=== PATIENT | female | born 1945 | race Caucasian/White ===

== ENCOUNTER 2020-09-22 14:15 | Emergency (ER) | payer MEDICARE, BC ==
[~2020-09-22] VITALS: Ht 160 cm; Wt 63.6 kg
[~2020-09-22 14:15] MED LIST: ASPI81TA52 PO; NITR0.4T51 SL; PANT40TA39 PO; ROSU10TA2 PO
[2020-09-22] MEDS ORDERED: normal saline 1000ML IV soln IVB ONE (14:30)
[2020-09-22 14:56] LABS: BASOPHILS # (AUTO) 0.1 X10'3 (0-0.2); EOSINOPHILS # (AUTO) 0.8 X10'3 (0-0.9); HEMOGLOBIN 12.6 g/dl (12.0-16.0); LYMPHOCYTES # (AUTO) 2.8 X10'3 (1.1-4.8); MEAN PLATELET VOLUME 9.4 FL (7.4-10.4); MONOCYTES # (AUTO) 0.7 X10'3 (0-0.9); NEUTROPHILS # (AUTO) 4.5 X10'3 (1.8-7.7)
[2020-09-22 14:58] LABS: BASOPHILS % (AUTO) 1.5 % (0-1); EOSINOPHILS % (AUTO) 8.8 % (0-6); HEMATOCRIT 37.9 % (35.0-45.0); LYMPHOCYTES % (AUTO) 31.3 % (21-51); MEAN CORPUSCULAR HGB CONC 33.2 g/dL (33.0-36.5); MEAN CORPUSCULAR VOLUME 93.3 FL (78-98); MONOCYTES % (AUTO) 7.7 % (2-12); NEUTROPHILS % (AUTO) 50.7 % (42-75); PLATELET COUNT 340 X10'3 (140-440); RED BLOOD COUNT 4.06 X10'6 (4.20-5.60); RED CELL DISTRIBUTION WIDTH 13.8 % (11.5-14.5); WHITE BLOOD COUNT 8.9 X10'3 (4.5-11.0)
[2020-09-22 15:07] LABS: D-DIMER 0.22 MG/L FEU (0-0.50)
[2020-09-22 15:13] LABS: LARGE PLATELETS FEW; PLATELET ESTIMATE NORMAL
[2020-09-22 15:20] LABS: ALANINE AMINOTRANSFERASE 42 U/L (12-78); ALBUMIN 3.3 G/DL (3.4-5.0); ALBUMIN/GLOBULIN RATIO 0.7 (1.1-1.5); ALKALINE PHOSPHATASE 146 IU/L (46-116); ANION GAP 7 (8-16); ASPARTATE AMINO TRANSFERASE 30 U/L (10-37); BILIRUBIN,TOTAL 0.4 MG/DL (0.1-1.0); BLOOD UREA NITROGEN 11 MG/DL (7-18); BUN/CREATININE RATIO 10.2 (6.6-38.0); CALCIUM 9.7 MG/DL (8.5-10.1); CHLORIDE 105 MMOL/L (99-107); CREATININE 1.08 MG/DL (0.40-0.90); GLUCOSE 220 MG/DL (70-104); POTASSIUM 3.9 MMOL/L (3.5-5.1); SODIUM 140 MMOL/L (135-145); TOTAL CARBON DIOXIDE 27.9 MMOL/L (24-32); TOTAL PROTEIN 8.2 G/DL (6.4-8.2); eGFR 49 ML/MIN
[2020-09-22 15:25] LABS: MAGNESIUM 2.1 MG/DL (1.5-2.4)
[2020-09-22 16:31] VITALS: BP 128/76
[2020-09-22] MEDS ORDERED: FLEC100T35 PO (17:10)
== END 2020-09-22 17:35 | disposition home or self-care (01) ==
LOC: ER 14:15
DX: R00.0 Tachycardia, unspecified (principal); N28.9 Disorder of kidney and ureter, unspecified; R42 Dizziness and giddiness; R07.89 Other chest pain; I48.91 Unspecified atrial fibrillation; E78.00 Pure hypercholesterolemia, unspecified; K21.9 Gastro-esophageal reflux disease without esophagitis; E11.9 Type 2 diabetes mellitus without complications; Z90.710 Acquired absence of both cervix and uterus; Z98.890 Other specified postprocedural states; Z88.8 Allergy status to other drugs, medicaments and biological substances; Z79.82 Long term (current) use of aspirin; Z79.899 Other long term (current) drug therapy
CPT/HCPCS: 36415; 71045; 80053; 83735; 83880; 84443; 84484; 85008; 85025; 85379; 93005; 99285; J7030

== ENCOUNTER 2022-12-16 07:54 | Day surgery (SDC) | payer MEDICARE, BC ==
[2022-12-16] VITALS (11 sets, daily range): BP systolic 102–181; BP diastolic 45–68
[~2022-12-16] VITALS: Ht 160 cm; Wt 58.0 kg
[~2022-12-16 07:54] MED LIST changes: +FLEC100T35 PO
[2022-12-16] MEDS ORDERED: diphenhydrAMINE 25mg capsule PO PRN (08:25)
[2022-12-16] MEDS ORDERED: MESSAGE TO PHARMACY PO ONE (08:25)
[2022-12-16] MEDS ORDERED: nitroGLYCERIN 0.4mg SUBLingual tab SL PRN ×2 (08:25→12:20)
[2022-12-16] MEDS ORDERED: normal saline 1,000 ML IV SCH (08:25)
[2022-12-16] MEDS ORDERED: LORazepam 0.5 MG tablet PO PRN (08:25)
[2022-12-16] MEDS ORDERED: dextrose 50%-water 50ml dispensing syringe IV PRN ×2 (08:25)
[2022-12-16] MEDS ORDERED: DEXTROSE 15 GM of carb/4 tabs (each vial/BOTTLE has 4 tablets) PO PRN ×2 (08:25)
[2022-12-16] MEDS ORDERED: glucagon, human recombinant 1mg kit SUBCUT PRN (08:25)
[2022-12-16] MEDS ORDERED: insulin Lispro (HumaLOG) vial - multi-dose SQ SCH (08:25)
[2022-12-16 08:56] LABS: APTT 35 SECONDS (22-32)
[2022-12-16] MEDS ORDERED: REPA1TAB8 PO (09:00)
[2022-12-16] MEDS ORDERED: WARF4TAB69 PO (09:00)
[2022-12-16] MEDS ORDERED: FLEC50TA PO (09:00)
[2022-12-16] MEDS ORDERED: CARV3.123 PO (09:00)
[2022-12-16] MEDS ORDERED: CETI-90 PO (09:03)
[2022-12-16] MEDS ORDERED: CHOL100L PO (09:03)
[2022-12-16] MEDS ORDERED: midazolam 1 mg/ML 2ml injection ONE (10:02)
[2022-12-16] MEDS ORDERED: iohexol 350MG/ML 100ml bottle IV ONE ×2 (10:02→11:05)
[2022-12-16] MEDS ORDERED: fentaNYL/PF 50MCG/1 ML 2ML syringe ONE (10:02)
[2022-12-16] MEDS ORDERED: iohexol 350 MG/ML 50ML vial IV ONE (10:02)
[2022-12-16] MEDS ORDERED: LIDOcaine 1% 30ml preserv. free vial ONE (10:03)
[2022-12-16] MEDS ORDERED: nitroGLYCERIN-Tridil 50MG/D5W 250 ML IV ONE (11:13)
[2022-12-16] MEDS ORDERED: hydrALAZINE 20mg/ml inj. IV ONE (11:19)
[2022-12-16] MEDS ORDERED: normal saline 1000ml 1,000 ML IV SCH (12:20)
[2022-12-16] MEDS ORDERED: OXAZEpam 15mg capsule PO PRN (12:20)
[2022-12-16] MEDS ORDERED: ondansetron/PF 4mg/2ml inj IV PRN (12:20)
[2022-12-16] MEDS ORDERED: HYDROcodone/acetaminophen 5mg/325mg tablet PO PRN (12:20)
[2022-12-16] MEDS ORDERED: proCHLORperazine 10 MG/2 ml inj IV PRN (12:20)
[2022-12-16] MEDS ORDERED: HYDROcodone/acetaminophen 10/325mg tab PO PRN (12:20)
--- NOTE | 2022-12-16 12:45 | NUR ---
pt attempted to void couple times and unable to, f/c placed without any difficulty.
[2022-12-16 14:15] LABS: ISTAT HGB ART 11.9 g/dl (12.0-16.0); ISTAT Hct ART 35 %PCV (35-45); ISTAT O2 SATURATION ARTERIAL 98 % (95-98); ISTAT SOURCE ART
[2022-12-16 15:39] LABS: ISTAT Hct MIX 35 %PCV (35-45); ISTAT O2 SATURATION MIX VENOUS 78 % (60-80); ISTAT SOURCE VEN
[2022-12-16 15:39] LABS: ISTAT Hct MIX 35 %PCV (35-45); ISTAT O2 SATURATION MIX VENOUS 73 % (60-80); ISTAT SOURCE VEN
--- NOTE | 2022-12-16 17:30 | NUR ---
f/c removed without any difficulty and pt was able to void after f/c removed.
[2022-12-16] MEDS ORDERED: insulin glargine (Lantus) pen - multi-dose SQ SCH (21:00)
== END 2022-12-16 17:55 | disposition home or self-care (01) ==
LOC: SSTAY O 07:54
PROVIDERS: ATTEND Internal Medicine Cardiovascular Disease
DX: I25.119 Atherosclerotic heart disease of native coronary artery with unspecified angina pectoris (principal); I08.0 Rheumatic disorders of both mitral and aortic valves; I48.0 Paroxysmal atrial fibrillation; K21.9 Gastro-esophageal reflux disease without esophagitis; E78.5 Hyperlipidemia, unspecified; E11.9 Type 2 diabetes mellitus without complications; I10 Essential (primary) hypertension; G47.9 Sleep disorder, unspecified; I73.9 Peripheral vascular disease, unspecified; J44.9 Chronic obstructive pulmonary disease, unspecified; Z88.8 Allergy status to other drugs, medicaments and biological substances; Z86.73 Personal history of transient ischemic attack (TIA), and cerebral infarction without residual deficits; Z86.16 Personal history of COVID-19; Z90.710 Acquired absence of both cervix and uterus; Z79.899 Other long term (current) drug therapy; Z79.01 Long term (current) use of anticoagulants; Z87.891 Personal history of nicotine dependence; Z90.81 Acquired absence of spleen
CPT/HCPCS: 36415; 82803; 82948; 83036; 83880; 84484; 85014; 85610; 85730; 93005; 93460; 93567; 99152; 99153; C1760; J0360; J1644; J2250; J3010; J3490; J7030; Q0163; Q9967; A6258; C1751; J1815

== ENCOUNTER 2022-12-30 11:02 | Outpatient (CLI) | payer MEDICARE, BC ==
[~2022-12-30] VITALS: Ht 152.4 cm; Wt 57.6 kg
[~2022-12-30 11:02] MED LIST changes: -ASPI81TA52 PO; +CARV3.123 PO; +CETI-90 PO; +CHOL100L PO; -FLEC100T35 PO; +FLEC50TA PO; -PANT40TA39 PO; +REPA1TAB8 PO; -ROSU10TA2 PO; +WARF4TAB69 PO
[2022-12-30 11:35] LABS: BASOPHILS # (AUTO) 0.1 X10'3 (0-0.2); BASOPHILS % (AUTO) 1.4 % (0-1); EOSINOPHILS # (AUTO) 0.6 X10'3 (0-0.9); EOSINOPHILS % (AUTO) 7.3 % (0-6); HEMATOCRIT 37.1 % (35.0-45.0); HEMOGLOBIN 12.1 g/dl (12.0-16.0); LYMPHOCYTES # (AUTO) 1.8 X10'3 (1.1-4.8); MEAN CORPUSCULAR HEMOGLOBIN 30.3 PG (27.0-31.0); MEAN CORPUSCULAR HGB CONC 32.8 g/dL (33.0-36.5); MEAN CORPUSCULAR VOLUME 92.3 FL (78-98); MEAN PLATELET VOLUME 9.4 FL (7.4-10.4); MONOCYTES # (AUTO) 0.6 X10'3 (0-0.9); MONOCYTES % (AUTO) 7.7 % (2-12); NEUTROPHILS # (AUTO) 4.7 X10'3 (1.8-7.7); NEUTROPHILS % (AUTO) 60.6 % (42-75); PLATELET COUNT 335 X10'3 (140-440); RED BLOOD COUNT 4.02 X10'6 (4.20-5.60); RED CELL DISTRIBUTION WIDTH 14.2 % (11.5-14.5); WHITE BLOOD COUNT 7.7 X10'3 (4.5-11.0)
[2022-12-30 11:45] LABS: APTT 41 SECONDS (22-32)
[2022-12-30 11:46] LABS: ALANINE AMINOTRANSFERASE 56 U/L (12-78); ALBUMIN/GLOBULIN RATIO 0.6 (1.1-1.5); ALKALINE PHOSPHATASE 199 IU/L (46-116); ANION GAP 9 (8-16); ASPARTATE AMINO TRANSFERASE 42 U/L (10-37); BILIRUBIN,TOTAL 0.3 MG/DL (0.1-1.0); BLOOD UREA NITROGEN 14 MG/DL (7-18); BUN/CREATININE RATIO 11.2 (10.0-20.0); CALCIUM 9.2 MG/DL (8.5-10.1); CHLORIDE 104 MMOL/L (99-107); CREATININE 1.25 MG/DL (0.40-0.90); GLUCOSE 258 MG/DL (70-104); POTASSIUM 4.4 MMOL/L (3.5-5.1); SODIUM 138 MMOL/L (135-145); TOTAL CARBON DIOXIDE 24.6 MMOL/L (24-32); TOTAL PROTEIN 7.8 G/DL (6.4-8.2); eGFR 41 ML/MIN
[2022-12-30] MEDS ORDERED: IODIXANOL 320 MG/ML INFUS..BTL 100ML IV ONE (12:14)
[2022-12-30 14:11] LABS: ABG HCO3 25.6 mmol/L (22.0-26.0); ABG OXYGEN SATURATION 95.3 % (94-97); ABG PCO2 (T) 40.8 mmHg (32.0-45.0); ABG PO2 (T) 73.7 mmHg (75.0-100.0); ALLEN'S TEST POSITIVE; FCOHb 0.4 % (0.0-3.9); FMetHb 0.3 % (0.0-1.5); FO2Hb 94.6 % (94-97); TOTAL HEMOGLOBIN 13.5 G/dl (12.0-16.0)
[2022-12-30] MEDS ORDERED: albuterol 2.5 MG/3 ML nebule NEB PRN (14:20)
== END 2022-12-30 23:59 | disposition home or self-care (01) ==
LOC: CARD DIAG 11:02
PROVIDERS: ATTEND Internal Medicine Cardiovascular Disease
DX: I08.0 Rheumatic disorders of both mitral and aortic valves (principal); R06.02 Shortness of breath; I65.29 Occlusion and stenosis of unspecified carotid artery; R94.2 Abnormal results of pulmonary function studies; I70.0 Atherosclerosis of aorta; M40.294 Other kyphosis, thoracic region; K80.20 Calculus of gallbladder without cholecystitis without obstruction
CPT/HCPCS: 36415; 36600; 71046; 71275; 74174; 80053; 82803; 85018; 85025; 85610; 85730; 93306; 94060; 94727; 94729; 94760; Q9967

== ENCOUNTER 2024-01-31 02:21 | Inpatient (IN) | payer MEDICARE, BC ==
[2024-01-31] VITALS (20 sets, daily range): BP systolic 117–167; BP diastolic 46–85; PULSE 64–89; RESP 14–22; TEMP 97.1–98.4; O2SAT 91–99
[~2024-01-31] VITALS: Ht 160 cm; Wt 59.1 kg
[~2024-01-31 02:21] MED LIST changes: +ASPI81TA53 PO; +ATOR20TA66 PO; -CARV3.123 PO; +CLOP75TA34 PO; +MULT-1085 PO; -REPA1TAB8 PO; -WARF4TAB69 PO
[2024-01-31 02:50] LABS: BASOPHILS # (AUTO) 0.1 X10'3 (0-0.2); BASOPHILS % (AUTO) 0.6 % (0-1); EOSINOPHILS # (AUTO) 0.2 X10'3 (0-0.9); EOSINOPHILS % (AUTO) 1.5 % (0-6); HEMOGLOBIN 13.1 g/dl (12.0-16.0); LYMPHOCYTES # (AUTO) 3.3 X10'3 (1.1-4.8); LYMPHOCYTES % (AUTO) 23.2 % (21-51); MEAN CORPUSCULAR HEMOGLOBIN 30.2 PG (27.0-31.0); MEAN CORPUSCULAR HGB CONC 32.8 g/dL (33.0-36.5); MEAN CORPUSCULAR VOLUME 92.1 FL (78-98); MEAN PLATELET VOLUME 9.2 FL (7.4-10.4); MONOCYTES # (AUTO) 1.7 X10'3 (0-0.9); MONOCYTES % (AUTO) 11.8 % (2-12); NEUTROPHILS % (AUTO) 62.9 % (42-75); PLATELET COUNT 257 X10'3 (140-440); RED BLOOD COUNT 4.34 X10'6 (4.20-5.60); RED CELL DISTRIBUTION WIDTH 13.7 % (11.5-14.5); WHITE BLOOD COUNT 14.4 X10'3 (4.5-11.0)
[2024-01-31] MEDS ORDERED: CARV3.122 PO (02:54)
[2024-01-31 02:59] LABS: ALBUMIN 2.8 G/DL (3.4-5.0); ANION GAP 6 (8-16); BLOOD UREA NITROGEN 16 MG/DL (7-18); CALCIUM 8.3 MG/DL (8.5-10.1); CHLORIDE 106 MMOL/L (99-107); CREATININE 1.45 MG/DL (0.40-0.90); GLUCOSE 106 MG/DL (70-104); POTASSIUM 3.8 MMOL/L (3.5-5.1); SODIUM 140 MMOL/L (135-145); TOTAL CARBON DIOXIDE 28.4 MMOL/L (24-32); eCRCL 26 ML/MIN; eGFR 35 ML/MIN
[2024-01-31] MEDS ORDERED: potassium Cl 40MEQ/1/2NS 520ml 520 ML IV PRN (03:40)
[2024-01-31] MEDS ORDERED: magnesium 2GM in 50ml NS 50 ML IV PRN (03:40)
[2024-01-31] MEDS ORDERED: magnesium 4gm in 100ml NS 100 ML IV PRN (03:40)
[2024-01-31] MEDS ORDERED: magnesium hydroxide 30ml (MOM) UD suspension PO PRN (03:40)
[2024-01-31] MEDS ORDERED: ondansetron/PF 4mg/2ml inj IV PRN ×2 (03:40→17:25)
[2024-01-31] MEDS ORDERED: morphine 2 MG/ML inj. syringe IV PRN ×2 (03:40→17:25)
[2024-01-31] MEDS ORDERED: mag hydrox/Alum hydrox/simeth 30ml oral suspension PO PRN (03:40)
[2024-01-31] MEDS ORDERED: potassium Cl 20 mEq SR tablet PO PRN ×2 (03:40)
[2024-01-31] MEDS ORDERED: magnesium Cl slow-release 64mg tablet PO PRN (03:40)
[2024-01-31] MEDS ORDERED: acetaminophen 325mg tablet PO PRN (03:40)
[2024-01-31 04:39] LABS: MAGNESIUM 1.9 MG/DL (1.5-2.4)
[2024-01-31] MEDS: tamsulosin 0.4mg capsule PO SCH (05:20)
[2024-01-31] MEDS: normal saline 1000ml 1,000 ML IV SCH (05:20)
[2024-01-31 05:55] LABS: BILIRUBIN,URINE NEGATIVE (Neg); CLARITY,URINE SLIGHTLY CLOUDY (Clear); COLOR,URINE YELLOW (Yellow); GLUCOSE, URINE NEGATIVE (Neg); KETONES,URINE NEGATIVE (Neg); LEUKOCYTE ESTERASE ,URINE NEGATIVE (Neg); NITRITES, URINE NEGATIVE (Neg); OCCULT BLOOD,URINE LARGE (Neg); PROTEIN,URINE NEGATIVE (Neg); UROBILINOGEN,URINE 0.2 E.U/dL (0.2-1.0)
[2024-01-31 06:03] LABS: UA COLLECTION TYPE STRAIGHT CATH
[2024-01-31 06:17] LABS: BACTERIA,URINE FEW /HPF (Neg); MUCUS STRANDS NONE SEEN /LPF (Neg); RBC,URINE 20-50 /HPF (0-2); SQUAMOUS EPITHELIAL CELL,UR NONE SEEN /LPF (FEW); WBC CLUMPS,URINE FEW /HPF (NEGATIVE)
[2024-01-31] MEDS: enoxaparin 30mg/0.3ml syringe SQ SCH (07:39)
[2024-01-31] MEDS: K and/or MAG REPLACEMENT MC SCH (08:00)
[2024-01-31] MEDS: flecainide 50mg tablet PO SCH (08:06)
[2024-01-31] MEDS: carVEDilol 3.125mg tablet PO SCH (08:07)
[2024-01-31] MEDS: docusate sod 100mg capsule PO SCH (08:07)
[2024-01-31] MEDS: CefTRIAXone/D5W-Rocephin 1gm 50 ML IV SCH (08:08)
[2024-01-31] MEDS ORDERED: FURO-150 PO (14:51)
[2024-01-31] MEDS ORDERED: LOSA-415 PO (14:51)
[2024-01-31] MEDS ORDERED: AMI200T PO (14:51)
[2024-01-31] MEDS ORDERED: SPIR25TA5 PO (14:51)
[2024-01-31] MEDS ORDERED: labetalol 20mg/4ml (5mg/ml) syringe IV PRN (17:25)
[2024-01-31] MEDS: ringers solution, lacted 1,000 ML IV SCH (17:25)
[2024-01-31] MEDS ORDERED: morphine 4 MG/ML inj SYRINge IV PRN (17:25)
[2024-01-31] MEDS ORDERED: fentaNYL/PF 50MCG/1 ML 2ML syringe IV PRN ×2 (17:25)
[2024-01-31] MEDS ORDERED: hydrALAZINE 20mg/ml inj. IV PRN (17:25)
[2024-01-31] MEDS ORDERED: oxybutynin 5mg tablet PO PRN (17:30)
[2024-01-31] MEDS ORDERED: phenazopyridine 100mg tablet PO PRN (17:30)
[2024-01-31] MEDS ORDERED: desflurane 240ml liquid inh. IH ONE (17:41)
[2024-01-31] MEDS ORDERED: propofol inj 20 ML IV ONE (17:53)
[2024-01-31] MEDS ORDERED: ondansetron/PF 4mg/2ml inj ONE (17:53)
[2024-01-31] MEDS: iohexol 300 MG/1 ML 10ml vial IV ONE (18:00)
[2024-02-01 02:00] VITALS: BP 152/60; PULSE 66; RESP 18; TEMP 96.6; O2SAT 92
[2024-02-01 06:00] VITALS: BP 152/60; PULSE 66; RESP 16; TEMP 97; O2SAT 96
[2024-02-01 06:03] LABS: BASOPHILS # (AUTO) 0.1 X10'3 (0-0.2); BASOPHILS % (AUTO) 1.8 % (0-1); EOSINOPHILS % (AUTO) 0.1 % (0-6); HEMATOCRIT 39.5 % (35.0-45.0); HEMOGLOBIN 12.9 g/dl (12.0-16.0); LYMPHOCYTES # (AUTO) 1.1 X10'3 (1.1-4.8); LYMPHOCYTES % (AUTO) 16.5 % (21-51); MEAN CORPUSCULAR HEMOGLOBIN 30.2 PG (27.0-31.0); MEAN CORPUSCULAR HGB CONC 32.7 g/dL (33.0-36.5); MEAN CORPUSCULAR VOLUME 92.2 FL (78-98); MEAN PLATELET VOLUME 9.6 FL (7.4-10.4); MONOCYTES # (AUTO) 0.2 X10'3 (0-0.9); MONOCYTES % (AUTO) 3.5 % (2-12); NEUTROPHILS # (AUTO) 5.2 X10'3 (1.8-7.7); NEUTROPHILS % (AUTO) 78.1 % (42-75); PLATELET COUNT 256 X10'3 (140-440); RED BLOOD COUNT 4.29 X10'6 (4.20-5.60); RED CELL DISTRIBUTION WIDTH 13.8 % (11.5-14.5); WHITE BLOOD COUNT 6.7 X10'3 (4.5-11.0)
[2024-02-01 06:27] LABS: ALBUMIN 2.4 G/DL (3.4-5.0); ANION GAP 7 (8-16); BLOOD UREA NITROGEN 24 MG/DL (7-18); BUN/CREATININE RATIO 21.1 (10.0-20.0); CALCIUM 8.7 MG/DL (8.5-10.1); CHLORIDE 105 MMOL/L (99-107); CHOL/HDL RATIO 3.1 (0.00-4.99); CHOLESTEROL 124 MG/DL (0-200); CREATININE 1.14 MG/DL (0.40-0.90); GLUCOSE 213 MG/DL (70-104); HDL CHOLESTEROL 40 MG/DL (35-60); LDL CHOLESTEROL 72 MG/DL (50-100); MAGNESIUM 2.1 MG/DL (1.5-2.4); POTASSIUM 4.2 MMOL/L (3.5-5.1); SODIUM 136 MMOL/L (135-145); TOTAL CARBON DIOXIDE 23.6 MMOL/L (24-32); TRIGLYCERIDES 59 MG/DL (20-135); eCRCL 33 ML/MIN; eGFR 46 ML/MIN
[2024-02-01 06:34] LABS: PLATELET ESTIMATE NORMAL
[2024-02-01 06:35] LABS: GIANT PLATELET FEW; LARGE PLATELETS FEW
[2024-02-01] MEDS ORDERED: CEPH250T PO (10:46)
[2024-02-01 11:28] VITALS: BP 153/56; PULSE 76; RESP 16; TEMP 97.3; O2SAT 98
== END 2024-02-01 13:36 | disposition home or self-care (01) | DRG 660 ==
LOC: ER 02:22 → ED HOLD 03:45 → SUR 3N 04:47
PROVIDERS: ADMIT Internal Medicine Critical Care Medicine; ATTEND Family Medicine
PROC: BT1F1ZZ Fluoroscopy of Left Kidney, Ureter and Bladder using Low Osmolar Contrast (ICD-10-PCS; 2024-01-31)
PROC: 0T778DZ Dilation of Left Ureter with Intraluminal Device, Via Natural or Artificial Opening Endoscopic (ICD-10-PCS; principal; 2024-01-31 17:41)
DX: N13.2 Hydronephrosis with renal and ureteral calculous obstruction (principal); I50.30 Unspecified diastolic (congestive) heart failure; R65.10 Systemic inflammatory response syndrome (SIRS) of non-infectious origin without acute organ dysfunction; N12 Tubulo-interstitial nephritis, not specified as acute or chronic; N17.9 Acute kidney failure, unspecified; K21.9 Gastro-esophageal reflux disease without esophagitis; I48.91 Unspecified atrial fibrillation; I25.10 Atherosclerotic heart disease of native coronary artery without angina pectoris; E11.9 Type 2 diabetes mellitus without complications; E78.00 Pure hypercholesterolemia, unspecified; I35.0 Nonrheumatic aortic (valve) stenosis; I11.0 Hypertensive heart disease with heart failure; Z90.710 Acquired absence of both cervix and uterus; Z90.81 Acquired absence of spleen; Z95.2 Presence of prosthetic heart valve
CPT/HCPCS: 36415; 71045; 76000; 80048; 80061; 81001; 82948; 83036; 83605; 83735; 85008; 85025; 87040; 87081; 87088; 93005; 99291; A4615; A4618; C1758; C1769; C2617; G0378; J0696; J1100; J1650; J2405; J2704; J3490; J7030; Q9967

== ENCOUNTER 2025-01-01 10:58 | Inpatient (IN) | payer MEDICARE, BC ==
[2024-12-27 15:46] LABS: BILIRUBIN,URINE NEGATIVE (Neg); CLARITY,URINE SLIGHTLY CLOUDY (Clear); COLOR,URINE YELLOW (Yellow); GLUCOSE, URINE >=1000 mg/dl (Neg); KETONES,URINE NEGATIVE (Neg); LEUKOCYTE ESTERASE ,URINE NEGATIVE (Neg); NITRITES, URINE NEGATIVE (Neg); OCCULT BLOOD,URINE TRACE-INTACT (Neg); PROTEIN,URINE NEGATIVE (Neg); UROBILINOGEN,URINE 0.2 E.U/dL (0.2-1.0)
[2024-12-27 15:52] LABS: BASOPHILS % (AUTO) 0.4 % (0-1); EOSINOPHILS % (AUTO) 0 % (0-6); LYMPHOCYTES # (AUTO) 0.9 X10'3 (1.1-4.8); LYMPHOCYTES % (AUTO) 9.9 % (21-51); MEAN CORPUSCULAR HEMOGLOBIN 31.1 PG (27.0-31.0); MEAN CORPUSCULAR HGB CONC 34.2 g/dL (33.0-36.5); MEAN CORPUSCULAR VOLUME 90.9 FL (78-98); MEAN PLATELET VOLUME 9.5 FL (7.4-10.4); MONOCYTES # (AUTO) 0.1 X10'3 (0-0.9); MONOCYTES % (AUTO) 1.5 % (2-12); NEUTROPHILS # (AUTO) 8.2 X10'3 (1.8-7.7); NEUTROPHILS % (AUTO) 88.2 % (42-75); PRE OP HEMATOCRIT 41.2 % (35.0-45.0); PRE OP HEMOGLOBIN 14.1 g/dL (12.0-16.0); PRE OP PLATELET COUNT 326 X10'3 (140-440); PRE OP WHITE BLOOD COUNT 9.3 10'3 (4.8-10.8); RED BLOOD COUNT 4.53 X10'6 (4.20-5.60); RED CELL DISTRIBUTION WIDTH 13.9 % (11.5-14.5)
[2024-12-27 15:52] LABS: UA COLLECTION TYPE CLN CATCH MIDSTREAM
[2024-12-27 15:54] LABS: SQUAMOUS EPITHELIAL CELL,UR FEW /LPF (FEW)
[2024-12-27 15:55] LABS: WBC CLUMPS,URINE FEW /HPF (NEGATIVE)
[2024-12-27 15:59] LABS: BACTERIA,URINE 1+ /HPF (Neg)
[2024-12-27 16:01] LABS: MUCUS STRANDS FEW /LPF (Neg)
[2024-12-27 16:05] LABS: HEMOGLOBIN A1C 6.9 % (4.5-6.2)
[2024-12-27 16:10] LABS: ALBUMIN 3.4 G/DL (3.4-5.0); ALBUMIN/GLOBULIN RATIO 0.6 (1.1-1.5); ALKALINE PHOSPHATASE 172 IU/L (46-116); BLOOD UREA NITROGEN 34 MG/DL (7-18); BUN/CREATININE RATIO 27.6 (10.0-20.0); CALCIUM 9.1 MG/DL (8.5-10.1); CHLORIDE 102 MMOL/L (99-107); CREATININE 1.23 MG/DL (0.40-0.90); PRE OP ALT 78 U/L (30-65); PRE OP ANION GAP 11 (8-16); PRE OP AST 63 U/L (10-37); PRE OP BILIRUB, TOTAL 0.4 MG/DL (0.0-1.0); PRE OP POTASSIUM 4.4 MMOL/L (3.4-5.1); PRE OP SODIUM 139 MMOL/L (135-145); TOTAL CARBON DIOXIDE 26.5 MMOL/L (24-32); TOTAL PROTEIN 8.7 G/DL (6.4-8.2); eGFR 42 ML/MIN
[2024-12-27 16:21] LABS: PRE OP GLUCOSE 243 MG/DL (70-104)
--- NOTE | 2024-12-27 16:38 | RADIOLOGY REPORT ---
DI CHEST,TWO VIEWS INDICATION: PREOP TECHNIQUE: Two views of the chest COMPARISON: CHEST,TWO VIEWS on DOS: 02/15/23 FINDINGS: LUNGS: No pleural effusion, consolidation, or pneumothorax. Graves peribronchial thickening. MEDIASTINUM: Mild cardiomegaly suspected. Aortic valvular replacement. BONES: No acute osseous abnormality. Thoracic kyphosis. Diffusely decreased bone mineralization. OTHER: None IMPRESSION: 1. No radiographic evidence of an acute cardiopulmonary process. Minimal peripheral interstitial santino a suspected. Mild cardiomegaly.
[~2025-01-01] VITALS: Ht 160 cm; Wt 57.6 kg
[2025-01-01] VITALS (34 sets, daily range): BP systolic 117–165; BP diastolic 41–79; PULSE 56–92; RESP 11–22; TEMP 96.5–98.6; O2SAT 95–98
[2025-01-01] MEDS: phenylephrine inj 50 MG in normal saline 250ml IV solN IV SCH (05:30)
[2025-01-01] MEDS: nitroPRUSSIDE (NIPRIDE) (200MCG/ML) 100ML Drip IV SCH (05:30)
[2025-01-01] MEDS: DOCUMENT DATE & TIME OF BETA-BLOCKER PO ONE (05:30)
[~2025-01-01 10:58] MED LIST changes: +AMLO2.5T4 PO; +ASCO500C17 PO; -ASPI81TA53 PO; -ATOR20TA66 PO; +CARV3.122 PO; -CHOL100L PO; +CHOL50004 PO; -CLOP75TA34 PO; +IMMUNE SUPPORT PO; +OMEG10006 PO; +REPA1TAB PO; +ROSU10TA72 PO; +WARF-55 PO; +WARF4TAB69 PO; +[UNRECOGNIZED DRUG - OTHER] PO; +[UNRECOGNIZED DRUG - OTHER] PO; +[UNRECOGNIZED DRUG - OTHER] PO
[2025-01-01] MEDS ORDERED: iohexol 350MG/ML 100ml bottle IV ONE (11:05)
[2025-01-01 11:44] LABS: APTT 27 SECONDS (22-32); INR 1.1 INR; PROTHROMBIN TIME 11.4 SECONDS (9.0-12.0)
[2025-01-01] MEDS: famotidine 20mg tablet PO ONE (11:44)
[2025-01-01] MEDS: ceFAZolin 2gm in dextrose, iso 50 ML IV ONE (11:48)
[2025-01-01] MEDS: ringers solution, lacted 1,000 ML IV SCH ×2 (11:49→13:35)
--- NOTE | 2025-01-01 12:40 | RADIOLOGY REPORT ---
Procedure: CT CTA NECK/HEAD HISTORY: PRE OP Comparison Study: None. Exam Date:01/01/2025 11:29 AM TECHNIQUE: CTA head without and with intravenous contrast. CTA neck with intravenous contrast. 3D shazia Makstr postprocessing was performed and images were used for interpretation and reporting. 100 cc of Omni paque 300 contrast was injected intravenously. All CT scans at this medical facility are performed using dose modulation techniques as appropriate t o a performed exam including the following: Automated exposure control was utilized; adjustment of th e MA and/or KV according to patient size; and use of iterative reconstruction technique. Radiation Dose : CT Dose: CTDI volume is 13 mGy. Dose-length product is 442 mGy*cm FINDINGS: CTA head: The intracranial internal carotid, anterior and middle cerebral arteries demonstrate normal caliber w ithout hemodynamically significant stenosis or occlusion. The vertebral, basilar, and posterior cerebral arteries also demonstrate normal caliber without hemod ynamically significant stenosis or occlusion. The right vertebral artery is dominant. There is no evidence of intracranial arterial aneurysm or arteriovenous malformation. The early parenchymal enhancement is grossly unremarkable. CTA neck: The visualized thoracic aortic arch and proximal great vessels are unremarkable. There are moderate calcified atherosclerotic plaques in the bilateral carotid bulbs extending into th e proximal internal carotid arteries. There is a approximately 65 to 70% stenosis in the proximal rig ht ICA. There is approximately 50% stenosis in the proximal left ICA. The right and left vertebral arteries are patent without flow-limiting stenosis or obvious dissectio n. The neck soft tissues appear within normal limits. Lung apices are clear. IMPRESSION: 1. No hemodynamically significant stenosis, proximal occlusion or aneurysm in the intracranial arteri es. 2. Moderate calcified atherosclerotic plaques in the bilateral carotid bulbs and proximal internal ca rotid arteries. There is approximately 65-70% stenosis in the proximal right ICA. There is approximat arley 50% stenosis in the proximal left ICA. HS:Y
[2025-01-01] MEDS ORDERED: LIDOcaine 1% (10mg/ml)w/preservative inj. 20ml MDV ONE (12:50)
[2025-01-01] MEDS ORDERED: heparin 10,000 units/1 ML INJ ONE ×3 (12:50→12:52)
[2025-01-01] MEDS ORDERED: methylene blue (5mg/ml) 50mg/10ml ampul IV ONE ×2 (12:50→12:52)
[2025-01-01] MEDS ORDERED: protamine sulfate 10mg/ml inj. ONE (12:53)
[2025-01-01] MEDS ORDERED: LIDOcaine 1% (10mg/ml) 2ml vial ONE (12:55)
[2025-01-01] MEDS ORDERED: morphine 4 MG/ML inj SYRINge IV PRN (13:35)
[2025-01-01] MEDS ORDERED: PHENYLephrine 10mg/ml inj. 100 MG in normal saline 250ml IV soln 240 ML IV SCH (13:35)
[2025-01-01] MEDS ORDERED: hydrALAZINE 20mg/ml inj. IV PRN (13:35)
[2025-01-01] MEDS ORDERED: fentaNYL/PF 50MCG/1 ML 2ML syringe IV PRN (13:35)
[2025-01-01] MEDS ORDERED: ondansetron/PF 4mg/2ml inj IV PRN ×2 (13:35→15:45)
[2025-01-01] MEDS ORDERED: labetalol 20mg/4ml (5mg/ml) syringe IV PRN (13:35)
[2025-01-01] MEDS ORDERED: nitroPRUSSIDE sod inj. 50 MG in dextrose 5%-water 248 ML IV SCH (13:35)
[2025-01-01] MEDS ORDERED: desflurane 240ml liquid inh. IH ONE (13:37)
[2025-01-01] MEDS ORDERED: fentaNYL/PF 50MCG/1 ML 2ML syringe ONE (13:38)
[2025-01-01] MEDS ORDERED: midazolam 1 mg/ML 2ml injection ONE (13:39)
[2025-01-01] MEDS ORDERED: ondansetron/PF 4mg/2ml inj ONE (13:58)
[2025-01-01] MEDS ORDERED: ePHEDrine 50MG/ML INJ. ONE (14:02)
[2025-01-01] MEDS ORDERED: sugammadex 200mg/2ml injection IV ONE (14:08)
[2025-01-01] MEDS ORDERED: heparin 1,000unit/ml 10ml vial 10 ML ONE (14:08)
[2025-01-01] MEDS ORDERED: LIDOcaine 2% (20mg/ml) 5ml vial ONE (14:09)
[2025-01-01] MEDS ORDERED: propofol inj 20 ML IV ONE (14:09)
[2025-01-01] MEDS ORDERED: rocuronium 10mg/ml inj IV ONE (14:09)
[2025-01-01] MEDS ORDERED: hydrALAZINE 20mg/ml inj. ONE ×2 (15:14→15:19)
--- NOTE | 2025-01-01 15:40 | OPERATIVE REPORT ---
Operative Report Providers to CC ~ Date of Procedure: Jan 01, 2025 Pre-Operative Diagnosis: SYMPTOMATIC RIGHT ICA STENOSIS Post-Operative Diagnosis SAME as PRE-Op Procedure Performed RIGHT CEA WITH EEG MONITORING AND BOVINE PERICARDIAL PATCH Surgeon: SAUL PASTOR Anesthesiologist: Marco Antonio Urbano Type of Anesthesia: General Findings: CRITICAL RIGHT ICA STENOSIS/NO EEG CHANGES Estimated Blood Loss: 300 ML Specimen Removed: ICA PLAQUE JANENE HUGHES MD Jan 01, 2025 15:40
[2025-01-01] MEDS: potassium CL 20mEq in D5-1/2NS 1,000 ML IV SCH (15:45)
[2025-01-01] MEDS ORDERED: naloxone 0.4 mg/ml inj IV PRN (15:45)
[2025-01-01] MEDS ORDERED: niCARDipine-NS 40mg/200ml IVPB 200 ML IV PRN (15:50)
[2025-01-01] MEDS ORDERED: ceFAZolin inj. 1,000 MG in dextrose 5%-water 50ml 50 ML IV SCH (16:00)
[2025-01-01] MEDS: morphine 2 MG/ML inj. syringe IV PRN (16:16)
[2025-01-01 16:20] LABS: APTT 110 SECONDS (22-32)
[2025-01-01] MEDS ORDERED: HYDROmorphone inj. 0.5 MG/0.5 ML DISP.SYRIN IV PRN (16:20)
[2025-01-01] MEDS: aspirin 300mg supp.rect RC ONE (16:25)
[2025-01-01] MEDS: fentaNYL/PF 50MCG/1 ML 2ML syringe IV PRN (16:37)
[2025-01-01] MEDS ORDERED: cetirizine 10mg tablet PO PRN (17:00)
[2025-01-01] MEDS ORDERED: nitroGLYCERIN 0.4mg SUBLingual tab SL PRN (17:00)
[2025-01-01 19:16] LABS: BASOPHILS # (AUTO) 0.1 X10'3 (0-0.2); BASOPHILS % (AUTO) 0.5 % (0-1); EOSINOPHILS % (AUTO) 0.3 % (0-6); HEMOGLOBIN 12.5 g/dl (12.0-16.0); LYMPHOCYTES % (AUTO) 8.1 % (21-51); MEAN CORPUSCULAR HEMOGLOBIN 30.2 PG (27.0-31.0); MEAN CORPUSCULAR HGB CONC 32.9 g/dL (33.0-36.5); MEAN CORPUSCULAR VOLUME 91.7 FL (78-98); MEAN PLATELET VOLUME 9.3 FL (7.4-10.4); MONOCYTES # (AUTO) 0.1 X10'3 (0-0.9); MONOCYTES % (AUTO) 0.7 % (2-12); NEUTROPHILS # (AUTO) 11.1 X10'3 (1.8-7.7); NEUTROPHILS % (AUTO) 90.4 % (42-75); PLATELET COUNT 332 X10'3 (140-440); RED BLOOD COUNT 4.15 X10'6 (4.20-5.60); WHITE BLOOD COUNT 12.2 X10'3 (4.5-11.0)
[2025-01-01 19:28] LABS: ALANINE AMINOTRANSFERASE 136 U/L (12-78); ALBUMIN 2.8 G/DL (3.4-5.0); ALBUMIN/GLOBULIN RATIO 0.7 (1.1-1.5); ALKALINE PHOSPHATASE 189 IU/L (46-116); ANION GAP 6 (8-16); ASPARTATE AMINO TRANSFERASE 76 U/L (10-37); BILIRUBIN,TOTAL 0.4 MG/DL (0.1-1.0); BLOOD UREA NITROGEN 19 MG/DL (7-18); BUN/CREATININE RATIO 21.3 (10.0-20.0); CALCIUM 8.4 MG/DL (8.5-10.1); CHLORIDE 104 MMOL/L (99-107); CREATININE 0.89 MG/DL (0.40-0.90); GLUCOSE 184 MG/DL (70-104); POTASSIUM 4.5 MMOL/L (3.5-5.1); SODIUM 137 MMOL/L (135-145); TOTAL CARBON DIOXIDE 26.8 MMOL/L (24-32); eCRCL 41 ML/MIN; eGFR 61 ML/MIN
[2025-01-01] MEDS: REPAGLINIDE 1 MG PO SCH (20:00)
[2025-01-01] MEDS: ceFAZolin/D5W- 1GM premix 50 ML IV SCH (20:15)
[2025-01-01] MEDS: HYDROcodone/acetaminophen 5mg/325mg tablet PO PRN (20:19)
[2025-01-01 21:46] LABS: APTT 28 SECONDS (22-32); INR 1.1 INR; PROTHROMBIN TIME 11.5 SECONDS (9.0-12.0)
[2025-01-02] VITALS (31 sets, daily range): BP systolic 106–161; BP diastolic 36–87; PULSE 52–102; RESP 9–30; O2SAT 94–100
[2025-01-02 02:41] LABS: BASOPHILS % (AUTO) 0.4 % (0-1); EOSINOPHILS % (AUTO) 0 % (0-6); HEMATOCRIT 36.3 % (35.0-45.0); HEMOGLOBIN 12.1 g/dl (12.0-16.0); LYMPHOCYTES # (AUTO) 1.3 X10'3 (1.1-4.8); LYMPHOCYTES % (AUTO) 11.5 % (21-51); MEAN CORPUSCULAR HEMOGLOBIN 30.7 PG (27.0-31.0); MEAN CORPUSCULAR HGB CONC 33.2 g/dL (33.0-36.5); MEAN CORPUSCULAR VOLUME 92.2 FL (78-98); MEAN PLATELET VOLUME 9.3 FL (7.4-10.4); MONOCYTES # (AUTO) 0.5 X10'3 (0-0.9); MONOCYTES % (AUTO) 4.2 % (2-12); NEUTROPHILS # (AUTO) 9.2 X10'3 (1.8-7.7); NEUTROPHILS % (AUTO) 83.9 % (42-75); PLATELET COUNT 292 X10'3 (140-440); RED BLOOD COUNT 3.94 X10'6 (4.20-5.60); RED CELL DISTRIBUTION WIDTH 14.2 % (11.5-14.5)
[2025-01-02 02:45] LABS: ALBUMIN 2.5 G/DL (3.4-5.0); ANION GAP 4 (8-16); BLOOD UREA NITROGEN 20 MG/DL (7-18); BUN/CREATININE RATIO 20.8 (10.0-20.0); CALCIUM 8.4 MG/DL (8.5-10.1); CHLORIDE 104 MMOL/L (99-107); CREATININE 0.96 MG/DL (0.40-0.90); GLUCOSE 294 MG/DL (70-104); POTASSIUM 4.8 MMOL/L (3.5-5.1); SODIUM 135 MMOL/L (135-145); TOTAL CARBON DIOXIDE 27.3 MMOL/L (24-32); eCRCL 38 ML/MIN; eGFR 56 ML/MIN
--- NOTE | 2025-01-02 04:32 | OPERATIVE REPORT ---
DATE OF SURGERY: 01/01/2025 DICTATING PHYSICIAN: Shaquille Jarvis MD PREOPERATIVE DIAGNOSIS: Symptomatic right ICA stenosis. POSTOPERATIVE DIAGNOSIS: Symptomatic right ICA stenosis. PROCEDURES: Right carotid endarterectomy using EEG monitoring and bovine pericardial patch. SURGEON: Shaquille Jarvis MD CHARGE AUTHORIZER: Tiffany. ANESTHESIA: General/Dr. Urbano. DRAINS: Levi x 1. INDICATIONS FOR OPERATION: An 79-year-old female with symptomatic right ICA stenosis, taken to surgery for endarterectomy. INTRAOPERATIVE FINDINGS: The patient had critical right ICA stenosis. There were no EEG changes. DESCRIPTION OF PROCEDURE: The patient was placed supine on the operating table. After induction of general anesthesia and placement of endotracheal tube, the right neck was prepped and draped. The procedure was then fascia. It was identified and incised. isolated, ligated, and divided. incised. Common external and internal arteries were subsequently isolated. The patient was heparinized with 4000 units of heparin. After a few minutes, the internal and external common carotid arteries were occluded. Arteriotomy was extended proximally and distally. Endarterectomy was performed. Distal flaps were tacked in place using sutures of 7-0 Prolene. Low-lying pericardial patch was brought to the field and secured to the place with running suture of 6-0 Prolene. Prior to surrounding the suture line, internal and external and common carotid arteries were flushed. Suture line was then secured. Flow was reestablished to the external carotid. After 5-6 beats, the flow was reestablished to the internal carotid. The patient had good flow by Doppler. Hemostasis was obtained. A #19 Levi drain was placed through a separate stab incision. The wound was irrigated with antibiotic-containing solution. Hemostasis was found to be adequate. The wound was closed in layers. The skin was closed with subcuticular stitch. Dressing applied and the patient was transferred to recovery in stable condition after reversing from general anesthesia. Shaquille Jarvis MD TID: [id number] RECEIPT: [id number] KB/SUM/AMA cc: Boo Lopez MD(User)
[2025-01-02] MEDS: carVEDilol 3.125mg tablet PO SCH (08:00)
[2025-01-02] MEDS: amLODIPine 2.5mg tablet PO SCH (08:47)
[2025-01-02] MEDS: flecainide 50mg tablet PO SCH (08:48)
[2025-01-02] MEDS: REPAGLINIDE 1 MG PO SCH (12:09)
[2025-01-02] MEDS: aspirin 81mg tab.chew PO SCH (12:44)
--- NOTE | 2025-01-02 12:47 | ELECTROCARDIOGRAPH REPORT ---
[facility] Test Date: 2025-01-02 Test Time: 12:45:44 Pat Name: LAZARO RODRIGUEZ Department: [facility] 2S Patient ID: [facility]-[id number] Room: [facility] 2011 A Gender: F Cop Breaker: LIZ : 1945 Requested By: JANENE HUGHES Order Number: [id number] Reading MD: Dr. TITO Cheng Measurements Intervals [place] Rate: 57 P: 81 ME: 220 QRS: 52 QRSD: 97 T: 86 QT: 428 QTc: 417 Interpretive Statements Sinus bradycardia Prolonged ME interval LVH with secondary repolarization abnormality Electronically Signed On 01-02-2025 17:52:[address] TITO Cheng Please click the below link to view image of tracing.
[2025-01-02] MEDS: pantoprazole 40mg Tablet.DR PO SCH (14:09)
[2025-01-02] MEDS: nitroGLYCERIN 0.4mg SUBLingual tab SL ONE (14:13)
--- NOTE | 2025-01-02 18:13 | PROGRESS NOTE ---
Progress Note ID Providers to CC ~ Progress Note Progress Note: DOING WELL/DR. GARCIA TO EVALUATE JANENE HUGHES MD Jan 02, 2025 18:13
[2025-01-03] VITALS (16 sets, daily range): BP systolic 106–183; BP diastolic 39–76; PULSE 59–99; RESP 10–26; O2SAT 92–95
[2025-01-03 03:01] LABS: BASOPHILS % (AUTO) 0.2 % (0-1); EOSINOPHILS # (AUTO) 0.4 X10'3 (0-0.9); EOSINOPHILS % (AUTO) 2.6 % (0-6); HEMATOCRIT 36.4 % (35.0-45.0); HEMOGLOBIN 12.1 g/dl (12.0-16.0); LYMPHOCYTES # (AUTO) 4.1 X10'3 (1.1-4.8); LYMPHOCYTES % (AUTO) 27.3 % (21-51); MEAN CORPUSCULAR HEMOGLOBIN 30.3 PG (27.0-31.0); MEAN CORPUSCULAR HGB CONC 33.1 g/dL (33.0-36.5); MEAN CORPUSCULAR VOLUME 91.5 FL (78-98); MEAN PLATELET VOLUME 9.1 FL (7.4-10.4); MONOCYTES # (AUTO) 1.3 X10'3 (0-0.9); MONOCYTES % (AUTO) 8.8 % (2-12); NEUTROPHILS # (AUTO) 9.2 X10'3 (1.8-7.7); NEUTROPHILS % (AUTO) 61.1 % (42-75); PLATELET COUNT 308 X10'3 (140-440); RED BLOOD COUNT 3.98 X10'6 (4.20-5.60); WHITE BLOOD COUNT 15.1 X10'3 (4.5-11.0)
[2025-01-03 03:06] LABS: ALBUMIN 2.6 G/DL (3.4-5.0); ANION GAP 5 (8-16); BLOOD UREA NITROGEN 22 MG/DL (7-18); BUN/CREATININE RATIO 23.9 (10.0-20.0); CHLORIDE 109 MMOL/L (99-107); CREATININE 0.92 MG/DL (0.40-0.90); GLUCOSE 117 MG/DL (70-104); POTASSIUM 4.5 MMOL/L (3.5-5.1); SODIUM 142 MMOL/L (135-145); TOTAL CARBON DIOXIDE 28.3 MMOL/L (24-32); eCRCL 40 ML/MIN; eGFR 59 ML/MIN
--- NOTE | 2025-01-03 11:21 | PATHOLOGY REPORT ---
[facility] [address] [place] [address] SURGICAL PATHOLOGY REPORT CaseNumber: [id number] Surgeon:Shaquille Jarvis M.D. CLINICAL INFORMATION CLINICAL INFORMATION: Occlusion and stenosis of right carotid artery. CLINICAL INFORMATION: Osculati on and stenosis of right carotid artery. CLINICAL INFORMATION: Occlusion and stenosis of right carotid artery. CLINICAL INFORMATION: Osculati on and stenosis of right carotid artery. DIAGNOSIS DIAGNOSIS: A.LYMPH NODE, RIGHT CERVICAL/CAROTID; EXCISION - ONE BENIGN LYMPH NODE (0/1). DIAGNOSIS: B.CAROTID ARTERY, RIGHT; ENDARTERECTOMY - MILDLY CALCIFIED ATHEROSCLEROTIC PLAQUE GROSSLY DESCRIBED. MICROSCOPIC DESCRIPTION A. LYMPH NODE, RIGHT CERVICAL/CAROTID MICROSCOPIC DESCRIPTION: 1 H&E stained slide is reviewed. It shows a bisected benign lymph node in a background of fibroadipose tissue. B. CAROTID ARTERY, RIGHT MICROSCOPIC DESCRIPTION: Not performed. GROSS DESCRIPTION A. LYMPH NODE, RIGHT CERVICAL/CAROTID GROSS DESCRIPTION: Received in a container of formalin labeled with the patient's name, number, and " cervical node R carotid" is a 1 cm fragment of yellow-carter tissue. The specimen is bisected and entir arley submitted as A1. The time at which the specimen was removed was 1418. The time at which the spec imen was placed in formalin was 1530. B. CAROTID ARTERY, RIGHT GROSS DESCRIPTION: Received in a container of formalin labeled with the patient's name, number, and " right carotid plaque" is a 1.5 cm aggregate of irregularly shaped pieces of mildly calcified atherosc lerotic plaque. Thrombus is not identified. A discrete mass lesion is not identified. No sections. Th e time at which the specimen was removed was 1418. The time at which the specimen was placed in forma marcel was 1530. Electronically signed by: Lisandro Ta, 01/03/2025 10:41:00 AM
--- NOTE | 2025-01-03 15:23 | PROGRESS NOTE ---
Progress Note ID Providers to CC ~ Progress Note Progress Note: doing well/dc JANENE HUGHES MD Jan 03, 2025 15:23
--- NOTE | 2025-01-03 16:21 | PROGRESS NOTE ---
Progress Note Cardiology Providers to CC ~ Subjective Subjective Cardiology progress note: Patient admitted for carotid endarterectomy. She complained of substernal chest pain relieved by antacid. She has had three troponins that are the same from chronic myocardial stretch 0.3. No EKG changes. She is completely asymptomatic and would like to go home family is at the bedside. Known diagnosis 1. 02/18/2023 TAVR 23 mm Gale[place]. Right coronary cutting balloon shockwave balloon with 3 mm x 18 mm ostial proximal drug-eluting stent. She has been asymptomatic as an outpatient with respect to angina palpitation presyncope or syncope. Most recent echocardiogram 09/21/2022 ejection fraction 70% 16 mm gradient. Repeat in 2023 no change. He has had remote paroxysmal atrial fibrillation. She has labile hypertension generalized anxiety disorder. : Medications as in hospital. Allergies diltiazem. Objective Result Diagram: 01/03/2522801/03/25228 Objective Patient lying in bed and would like to go home. No carotid bruit lungs are clear. Grade 1 to two systolic murmur aortic focus left sternal border apex no S3 gallop. Abdomen no bruits peripheral pulses intact. Trace edema. Ocular motion intact no nystagmus no tremors speech fluent. Coagulation Studies Laboratory Tests Test 01/01/25 21:20 Prothrombin Time 11.5 SECONDS (9.0-12.0) INR International Normalized Ratio 1.1 INR Activated Partial Thromboplast Time 28 SECONDS (22-32) Coagulation Comments Other Results Electrocardiogram chronic nonspecific ST-T changes. Problem\Assessment\Plan Additional Plan Assessment cardiac status stable. Recommendation: No cardiac contraindication to discharge. Would like to see in follow-up in two weeks to four weeks. KEVIN GARCIA MD Jan 03, 2025 16:21
== END 2025-01-03 16:13 | disposition home or self-care (01) | DRG 39 ==
LOC: PAS IN 10:58 → CICU 2S 17:20
PROVIDERS: ADMIT Surgery; ATTEND Surgery
PROC: 03CK0ZZ Extirpation of Matter from Right Internal Carotid Artery, Open Approach (ICD-10-PCS; 2025-01-01)
PROC: 03CM0ZZ Extirpation of Matter from Right External Carotid Artery, Open Approach (ICD-10-PCS; 2025-01-01)
PROC: 03UM0KZ Supplement Right External Carotid Artery with Nonautologous Tissue Substitute, Open Approach (ICD-10-PCS; 2025-01-01)
PROC: B3281ZZ Computerized Tomography (CT Scan) of Bilateral Internal Carotid Arteries using Low Osmolar Contrast (ICD-10-PCS; 2025-01-01)
PROC: B32G1ZZ Computerized Tomography (CT Scan) of Bilateral Vertebral Arteries using Low Osmolar Contrast (ICD-10-PCS; 2025-01-01)
PROC: B32R1ZZ Computerized Tomography (CT Scan) of Intracranial Arteries using Low Osmolar Contrast (ICD-10-PCS; 2025-01-01)
PROC: 4A10X4Z Monitoring of Central Nervous Electrical Activity, External Approach (ICD-10-PCS; principal; 2025-01-01 13:37)
DX: I65.21 Occlusion and stenosis of right carotid artery (principal); F41.1 Generalized anxiety disorder; I10 Essential (primary) hypertension; I48.0 Paroxysmal atrial fibrillation
CPT/HCPCS: 36415; 70496; 70498; 71046; 80048; 80053; 81001; 82948; 83036; 83735; 84484; 85025; 85610; 85730; 86885; 86900; 86901; 87077; 87081; 87088; 87186; 93005; 95813; 95816; A4615; A4618; A6258; A6402; A6449; A7000; C1758; C1887; G0378; J0360; J0690; J1100; J1644; J2003; J2250; J2270; J2371; J2405; J2704; J2720; J3010; J3480; J3490; J7040; J7050; J7120; Q9967; Q9968